=== PATIENT | male | born 1980 | race Caucasian/White ===

== ENCOUNTER 2021-11-02 12:00 | Outpatient (CLI) | payer OTHER, SELFPAY | END 2021-11-03 12:19 | disposition home or self-care (01) | LOC: SLEEP 11-09 12:43 | PROVIDERS: Visit Provider Family Medicine | DX: R40.0 Somnolence (principal); F32.9 Major depressive disorder, single episode, unspecified; E29.1 Testicular hypofunction; G47.33 Obstructive sleep apnea (adult) (pediatric) | CPT/HCPCS: G0399 ==

== ENCOUNTER → 2022-01-09 08:38 | Outpatient (BNVA) | payer OTHER, SELFPAY | PROVIDERS: PCP Nurse Practitioner Family; Visit Provider Nurse Practitioner Family | DX: R53.83 Other fatigue (principal); R79.89 Other specified abnormal findings of blood chemistry; E78.5 Hyperlipidemia, unspecified; I10 Essential (primary) hypertension | CPT/HCPCS: 80053; 80061; 84403; 84443 ==

== ENCOUNTER 2022-10-23 10:34 | Outpatient (CLI) | payer OTHER, SELFPAY ==
--- NOTE | 2022-10-23 10:43 | XRR_ITS ---
PROCEDURE INFORMATION: Exam: XR Chest Exam date and time: 10/23/2022 10:45 AM Age: 42 years old Clinical indication: Dyspnea; Patient HX: KRISTIAN cerna having covid oct 2021 TECHNIQUE: Imaging protocol: Radiologic exam of the chest. Views: 2 views. COMPARISON: No relevant prior studies available. FINDINGS: Lungs: Unremarkable. No consolidation. Pleural spaces: Unremarkable. No pleural effusion. No pneumothorax. Heart/Mediastinum: Unremarkable. No cardiomegaly. Bones/joints: Unremarkable for age. Other findings: AreFINDINGS: XR/XR chest 2V* [id number] IMPRESSION: Negative chest
== END 2022-10-23 10:35 | disposition home or self-care (01) ==
LOC: RAD 10:38
PROVIDERS: PCP Family Medicine; Visit Provider Family Medicine
DX: R06.00 Dyspnea, unspecified (principal); R06.02 Shortness of breath
CPT/HCPCS: 71046

== ENCOUNTER → 2022-10-31 13:38 | Outpatient (BNVA) | payer OTHER, SELFPAY | PROVIDERS: PCP Family Medicine; Visit Provider Family Medicine | DX: R53.83 Other fatigue (principal); R06.00 Dyspnea, unspecified; I10 Essential (primary) hypertension; E34.9 Endocrine disorder, unspecified; F41.9 Anxiety disorder, unspecified | CPT/HCPCS: 80053; 80061; 84403; 85025; 86140 ==

== ENCOUNTER → 2024-01-16 11:56 | Outpatient (BNVA) | payer OTHER, SELFPAY | PROVIDERS: PCP Family Medicine; Visit Provider Family Medicine | DX: E34.9 Endocrine disorder, unspecified (principal); I10 Essential (primary) hypertension; F41.9 Anxiety disorder, unspecified | CPT/HCPCS: 80053; 84403; 85025 ==

== ENCOUNTER 2024-08-06 14:25 | Outpatient (CLI) | payer OTHER, SELFPAY ==
--- NOTE | 2024-08-06 14:42 | CT_ITS ---
WS: [id number] CT PARANASAL SINUSES HISTORY: CHRONIC SINUSITIS TECHNIQUE: Contiguous 2.5 mm axial images obtained through the sinuses. Images are reconstructed in s agittal and coronal planes. All CT scans at [facility] use at least one of these dose optimiz ation techniques: automated exposure control; mA and/or kV adjustment per patient size (includes targ eted exams where dose is matched to clinical indication); or iterative reconstruction. DLP: 411.35 mGy.cm COMPARISON: None available. Frontal sinuses: Frontal sinuses are clear. There are a few small thin septations to the sinus caviti es. Sphenoid sinus: Normal. Ethmoid sinuses: Very minimal secretions in the posterior ethmoid air cells. Maxillary sinus: Focal area of mucoperiosteal thickening or mucous retention cyst along the medial wa ll RIGHT maxillary sinus. There are no air-fluid levels. Ostiomeatal unit: Small amount of mucoperiosteal thickening along the ostiomeatal units but there is no complete obstruction. Mild curvature and deviation of the inferior nasal septum to the LEFT. Small 4 mm bony spur. Orbits and globes and extraocular muscles appear symmetric. CT/CT sinus wo con* [id number] IMPRESSION: 1. No air-fluid levels within the paranasal sinuses. 2. Very minimal mucoperiosteal thickening involving the ostiomeatal units. No obstruction.
== END 2024-08-06 14:26 | disposition home or self-care (01) ==
PROVIDERS: PCP Family Medicine; Visit Provider Otolaryngology
DX: J32.9 Chronic sinusitis, unspecified (principal); J34.89 Other specified disorders of nose and nasal sinuses; J31.0 Chronic rhinitis; J34.1 Cyst and mucocele of nose and nasal sinus
CPT/HCPCS: 70486

== ENCOUNTER → 2025-01-14 08:24 | Outpatient (BNVA) | payer OTHER, SELFPAY | PROVIDERS: PCP Family Medicine; Visit Provider Family Medicine | DX: F41.9 Anxiety disorder, unspecified (principal); I10 Essential (primary) hypertension; E34.9 Endocrine disorder, unspecified | CPT/HCPCS: 80053; 80061; 84403; 85025 ==